=== PATIENT | female | born 1985 | race Two or more races ===

== ENCOUNTER 2025-08-06 17:36 | Emergency (ER) | payer OTHER ==
[~2025-08-06] VITALS: Ht 160 cm; Wt 90.2 kg
--- NOTE | 2025-08-06 17:55 | ECG ---
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
--- NOTE | 2025-08-06 18:41 | ED.PDOC ---
Back pain HPI HPI Comments This is a 40 year old female presenting to the ED with chief complaint of syncope and back pain. Patient reports that she had fell when attempting to pick something up from the ground, causing immense pain to her lower back. Patient relays that soon after, she had a syncopal episode that her noted to be 10 seconds long and some dizziness at this time. Patient denies any chest pain, weakness, saddle anesthesia, headache, head injury, or N/V. 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 Family History Family History: Reviewed,noncontributory to illness Social History Lives In: Home Constitutional: denies: chills, diaphoresis, fatigue, fever, malaise, sweats, weakness, others EENTM: denies: blurred vision, double vision, ear bleeding, ear discharge, ear drainage, ear pain, ear ringing, eye pain, eye redness, hearing loss, mouth pain, mouth swelling, nasal discharge, nose bleeding, nose congestion, nose pain, photophobia, tearing, throat pain, throat swelling, voice changes, others Respiratory: denies: cough, hemoptysis, orthopnea, SOB at rest, shortness of breath, SOB with excertion, stridor, wheezing, others Cardiovascular: reports: syncope; denies: chest pain, dizzy spells, diaphoresis, Dyspnea on exertion, edema, irregular heart beat, left arm pain, lightheadedness, palpitations, PND, others Gastrointestinal: denies: abdomen distended, abdominal pain, blood streaked bowels, constipated, diarrhea, dysphagia, difficulty swallowing, hematemesis, melena, nausea, poor appetite, poor fluid intake, rectal bleeding, rectal pain, vomiting, others Genitourinary: denies: abnormal vagina bleeding, burning, dyspareunia, dysuria, flank pain, frequency, hematuria, incontinence, pain, , vagina discharge, urgency, others Neurological: reports: dizziness; denies: fainting, headache, left sided numbness, left sided weakness, numbness, paresthesia, pre-existing deficit, right sided numbness, right sided weakness, seizure, speech problems, tingling, tremors, weakness, others Musculoskeletal: reports: back pain; denies: gout, joint pain, joint swelling, muscle pain, muscle stiffness, neck pain, others Integumetry: denies: bruises, change in color, change in hair/nails, dryness, laceration, lesions, lumps, rash, wounds, others Allergic/Immunocompromised: denies: Difficulty Healing, Frequent Infections, Hives, Itching, others Hematologic/Lymphatic: denies: anemia, blood clots, easy bleeding, easy bruising, swollen glands, others Endocrine: denies: excessive hunger, excessive sweating, excessive thirst, excessive urination, flushing, intolerance to cold, intolerance to heat, unexplained weight gain, unexplained weight loss, others Psychiatric: denies: anxiety, bipolar disorder, depression, hopeless, panic disorder, schizophrenia, sleepless, suicidal, others All Other Systems: Reviewed and Negative Physical Exam General Appearance: No Apparent Distress, Normal HEENT: Normal ENT Inspection, Pharynx Normal, TMs Normal Neck: Full Range of Motion, Non-Tender, Normal, Normal Inspection Respiratory: Chest Non-Tender, Lungs Clear, No Accessory Muscle Use, No Respiratory Distress, Normal Breath Sounds Cardiovascular: No Edema, No JVD, No Murmur, No Gallop, Normal Peripheral Pulses, Regular Rate/Rhythm Breast Exam: Deferred Gastrointestinal: No Organomegaly, Non Tender, No Pulsatile Mass, Normal Bowel Sounds, Soft Genitalia: Deferred Pelvic: Deferred Rectal: Deferred Extremities: No calf tenderness, Normal capillary refill, Normal inspection, Normal range of motion, Non-tender, No pedal edema Musculoskeletal : Apperance: Tenderness (Lumbar paraspinus region tenderness. No loss of bladder control and no saddle paresthesia.) Neurologic: Alert, metal sander II-XII nml as Tested, No Motor Deficits, Normal Affect, Normal Mood, No Sensory Deficits Cerebellar Function: Normal Reflexes: Normal Skin: Dry, Normal Color, Warm Lymphatic: No Adenopathy Was a procedure done? Was a procedure done?: No Back Pain Differential Dx Differential Diagnosis: DJD, Fracture X-Ray, Labs, Meds, VS Vital Signs Date Time Temp Pulse Resp B/P (MAP) Pulse Ox O2 Delivery O2 Flow Rate FiO2 08/06/25 17:47 59 08/06/25 17:38 98.2 78 18 121/77 98 98.2 X-Ray, Labs, Meds, VS Comment IMAGING WAS REVIEWED BY THIS PROVIDER, THERE IS NO OBVIOUS PATHOLOGICAL OR ACUTE DISEASE PROCESS. PENDING RADIOLOGY REVIEW LABS WERE REVIEWED BY THIS PROVIDER, NO ABNORMALITIES VITAL SIGNS REVIEWED BY THIS PROVIDER, CLINICALLY STABLE Time of 1ST Reevaluation: 19:36 Reevaluation 1ST: Unchanged Patient Education/Counseling: Diagnosis, Treatment, Need For Follow Up (FOLLOW UP WITH PCP NEXT AVAILABLE APPOINTMENT.) Family Education/Counseling: No Family Present SEPSIS Sepsis Screen Date sepsis recognized/suspect: Aug 06, 2025 Time Sepsis recognized/suspect: 1737 Recent Procedure: No On Antibiotic Therapy: No Respiratory Rate >20: No Heart Rate >90: No Temp<36 C (96.8 F) or >38.3 C: No SBP <90 or MAP <65 mmHG: No New Acute Mental Status Change: No Is the patient on CPAP, BIPAP,: No Physician Orders Lumbar Spine 3 View (08/06/25 18:29) Vital Signs Date Time Temp Pulse Resp B/P (MAP) Pulse Ox O2 Delivery O2 Flow Rate FiO2 08/06/25 17:47 59 08/06/25 17:38 98.2 78 18 121/77 98 98.2 Departure 1 Departure Time of Disposition: 19:14 Impression: Primary Impression: Lumbar strain Qualified Codes: S39.012A - Strain of muscle, fascia and tendon of lower back, initial encounter Additional Impression: Syncopal episodes Qualified Codes: R55 - Syncope and collapse Disposition: 01 HOME / SELF CARE / HOMELESS Condition: Stable e-Prescriptions Cyclobenzaprine Hcl (Cyclobenzaprine Hcl) 5 Mg Tab 1 TAB PO TID, #30 TAB Prov: 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 Electronically submitted by [place] ([email or web address]). CECIL OWENS Aug 06, 2025 18:41
--- NOTE | 2025-08-06 19:07 | DVH ---
CLINICAL INDICATION: BACK PAIN TECHNIQUE: 3 radiographic views of the lumbar spine were obtained. Comparison: None FINDINGS/IMPRESSION: Bony alignment is normal. There are no compressed vertebra. There is no spondylolisthesis.
[2025-08-06] MEDS ORDERED: IBUP-1455 PO (19:15)
[2025-08-06] MEDS ORDERED: CYCL-837 PO (19:15)
[2025-08-06] MEDS: methylPREDNISolone SOD SUCC 125 MG/2 ML VL IM ONE (20:10)
[2025-08-06] MEDS: KETOROLAC TROMETH 30 MG/ML 1ML VIAL IM ONE (20:10)
[2025-08-06 20:17] VITALS: BP 122/76; PULSE 78; RESP 19; TEMP 98.3; O2SAT 99
== END 2025-08-06 20:14 | disposition home or self-care (01) ==
LOC: ER 17:36
DX: S39.012A Strain of muscle, fascia and tendon of lower back, initial encounter (principal); R55 Syncope and collapse; W18.39XA Other fall on same level, initial encounter; Y93.89 Activity, other specified; Y92.89 Other specified places as the place of occurrence of the external cause; Y99.8 Other external cause status
CPT/HCPCS: 72100; 93005; 96372; 99284; J1885; J2919